=== PATIENT | male | born 1960 | race Caucasian/White ===

== ENCOUNTER 2023-06-23 14:48 | Emergency (ER) | payer BC ==
[~2023-06-23] VITALS: Ht 180.3 cm; Wt 91.2 kg
[2023-06-23] MEDS ORDERED: LIDOCAINE 1%-EPI 1:100,000 20 ML VIAL TP ONE (15:30)
[2023-06-23] MEDS ORDERED: LIDOCAINE 1%-EPI 1:100,000 20 ML VIAL ONE (16:16)
[2023-06-23] MEDS ORDERED: TDAP [DIPH/PERTUSSIS/TET] 0.5 ML VIAL IM ONE ×2 (16:53→17:00)
[2023-06-23 17:01] VITALS: BP 136/69; TEMP 98.2; O2SAT 100
== END 2023-06-23 17:01 | disposition home or self-care (01) ==
LOC: ER 15:18
DX: S01.01XA Laceration without foreign body of scalp, initial encounter (principal); R51.9 Headache, unspecified; W11.XXXA Fall on and from ladder, initial encounter; Y93.89 Activity, other specified; Y92.89 Other specified places as the place of occurrence of the external cause; Y99.8 Other external cause status
CPT/HCPCS: 12002; 70450; 90471; 90715; 99285; A6403; J3490